=== PATIENT | female | born 2000 | race Two or more races ===

== ENCOUNTER 2022-04-13 10:33 | Emergency (ER) | payer SELFPAY ==
[~2022-04-13] VITALS: Ht 162.6 cm; Wt 72.2 kg
[2022-04-13] MEDS ORDERED: PERMETHRIN5 % EX (11:20)
[2022-04-13 11:38] VITALS: BP 112/74
== END 2022-04-13 11:38 | disposition home or self-care (01) | DRG 607 ==
LOC: ED 10:33
DX: B86 Scabies (principal)